=== PATIENT | female | born 1960 | race Caucasian/White ===

== ENCOUNTER 2020-03-13 07:58 | Day surgery (SDC) | payer BC ==
[~2020-03-13] VITALS: Ht 154.9 cm; Wt 72.7 kg
[~2020-03-13 07:58] MED LIST: ALL DAY ALLERGY10 M3 PO; EFFEXOR XR37.5 MG PO; FLONASE ALLERG9.9 ML NAS; NIACINAMIDE500 MG PO; RED YEAST RICE600 MG PO; SUPER OMEGA-31000 MG PO; VITAMIN D325 MC2 PO
[2020-03-13] MEDS ORDERED: ARMOUR THYROID90 MG PO (08:23)
[2020-03-13] MEDS ORDERED: THYROID COMPLEX PO (08:25)
--- NOTE | 2020-03-13 10:20 | NUR ---
03/13/20 1020 Daisy Rosario 1013- PT TO PACU IN LL POSITION. EYES CLOSED, SLEEPING WITH ORAL AIRWAY IN PLACE. DOES NOT RESPOND TO VERBAL OR TACTILE STIMULI. BREATHING EASY AND UNLABORED. SPO2 >95% ON 10 L O2 VIA SIMPLE MASK.
--- NOTE | 2020-03-13 13:14 | NUR ---
UNABLE TO VISIT WITH PT, CONNECTED WITH WAITING IN RM. CARMELITA SHARED HE HOPES TODAY IS PRODUCTIVE, PT HAS BEEN SUFFERING FOR ABOUT 1 YR AND TO THIS POINT NO REASON HAS BEEN LOCATED. GAVE ENCOURAGEMENT WILL FOLLOW NEEDED
--- NOTE | 2020-03-13 18:25 | OR ---
[facility] [address] [place], [place] [address] Signed DATE OF OPERATION: 03/13/2020 SURGEON: Mary Clark MD PREOPERATIVE DIAGNOSES: 1. Epigastric abdominal pain. 2. Diarrhea. 3. Vomiting. 4. Diverticulosis. POSTOPERATIVE DIAGNOSES: 1. Mild gastritis. 2. [id number] pandiverticulosis. 3. Minimal internal hemorrhoids. PROCEDURE: 1. EGD with CLOtest and biopsies of the duodenum and antrum. 2. Colonoscopy without biopsy. ESTIMATED BLOOD LOSS: None. INDICATIONS: Scarlett is a 59-year-old female, who asked to see me for both upper and lower endoscopy. For at least 2 years now, she has been having epigastric abdominal pain, but has been getting worse over the last two months. It is often associated with diarrhea. Once a while she vomits. It does not seem to be associated with eating. In addition, she had her screening colonoscopy back in 2010. She is known to have pandiverticulosis. However, it is quite minimal. In the meantime, she has also been working with her primary care provider with respect to her hypothyroidism. She is trying a new medication currently. In the office, I gave her pamphlets on both upper and lower endoscopy. She recalls those quite well. She understands this risk including, but not limited to gas bloating, crampy abdominal pain, bleeding, perforation requiring surgery, and missed diagnosis. She also understands the need for IV conscious sedation. She expressed her understanding and wished to proceed. PROCEDURE NOTE: Scarlett was taken into our endoscopy suite and placed in the supine semi-recumbent position. The posterior oropharynx was anesthetized with lidocaine spray. A bite block was utilized for the case. She was given a total of 12 mg of Versed and 250 mcg of Electronically Signed By: MARY CLARK MD 03/13/20 1825 PATIENT NAME: SCARLETT ANDRADE OPERATIVE REPORT DATE OF : 60 REPORT #: [id number] PHYSICIAN: MARY CLARK MD PCP: JALEEL MILLER PA-C REPORT IS CONFIDENTIAL AND NOT TO BE RELEASED WITHOUT AUTHORIZATION [facility] [address] [place], [place] [address] Signed fentanyl to help cover both upper and lower endoscopy. Most of that was given for the upper endoscopy. We were able to get the scope out into the third portion of the duodenum. We took a biopsy for the history of diarrhea. Otherwise, the duodenum and pyloric channel were unremarkable. The stomach showed very mild erythematous changes. We went and took a biopsy of the antrum for CLOtest as well as pathologic review. Upon retroflexion of scope, there was no additional pathology noted. No evidence of hiatal hernia. No ulcerations. The scope was withdrawn up through the area of the GE junction, which was compliant without stricture. There was no gastric or esophageal varices. A very minimal disruption to the Z-line. No Wolfe's mucosa. No distal esophagitis. The middle and upper esophagus were unremarkable. After this, the gas was suctioned out, and the gastroscope removed. Scarlett tolerated the upper endoscopy quite well. Scarlett was rotated into the left lateral decubitus position. We had continued with the Versed and fentanyl. A digital rectal exam was performed and this was unremarkable. The adult colonoscope was introduced and advanced under direct visualization of camera. She has a somewhat angulated rectosigmoid junction and then continued angulation in her sigmoid colon. The scope continued to drag in the sigmoid colon. It took quite a bit to get through that area and up into the mid transverse colon. Even with the additional medication, abdominal compression, and rotating Scarlett on the bed, the scope simply was not going to advance any further. She simply was too awake and pushing back to advance the scope. Consequently, we did have our anesthesia provider come and add propofol. She was able to relax at that point and the scope then traveled quite nicely right into the cecum itself. We could easily see the appendiceal orifice and the ileocecal valve. Her prep was quite good. The scope was slowly withdrawn. Again, she has diverticula throughout. They are moderate in size, but few in number and scattered on the right and left side. No other pathology noted. The rectum was unremarkable. Upon retroflexion of the scope, she had a very minimal internal hemorrhoid tissue. After this, the gas was suctioned out, and the colonoscope removed. Scarlett tolerated the procedure quite well. RECOMMENDATIONS: I will see Scarlett back in my office in 7 to 14 days to review her results. Mary Clark MD ALB/MODL /[id number] Electronically Signed By: MARY CLARK MD 03/13/20 1825 PATIENT NAME: SCARLETT ANDRADE OPERATIVE REPORT DATE OF : 60 REPORT #: [id number] PHYSICIAN: MARY CLARK MD PCP: JALEEL MILLER PA-C REPORT IS CONFIDENTIAL AND NOT TO BE RELEASED WITHOUT AUTHORIZATION [facility] [address] [place], [place] [address] Signed cc: ELIZABETH Aguliar DC Copies: TAN REED DC ~ Electronically Signed By: MARY CLARK MD 03/13/20 1825 PATIENT NAME: SCARLETT ANDRADE OPERATIVE REPORT DATE OF : 60 REPORT #: [id number] PHYSICIAN: MARY CLARK MD PCP: JALEEL MILLER PA-C REPORT IS CONFIDENTIAL AND NOT TO BE RELEASED WITHOUT AUTHORIZATION
--- NOTE | 2020-03-14 11:44 | PATH ---
[facility] [address] [place], [place] [address] Signed SPECIMEN(S): A DUODENUM SPECIMEN(S): B ANTRUM/PYLORUS SPECIMEN SOURCE: A. DUODENUM B. ANTRUM/PYLORUS CLINICAL HISTORY: Epigastric pain, diarrhea. Postop: Gastritis, diverticulosis, internal hemorrhoids. MICROSCOPIC DESCRIPTION: Histologic sections of all submitted blocks are examined by light microscopy. These findings, together with the gross examination, support the pathologic diagnosis. FINAL PATHOLOGIC DIAGNOSIS: A. Duodenum, biopsy: - Duodenal mucosa with no histopathologic abnormality. - Negative for increased intraepithelial lymphocytes. - Negative for dysplasia or malignancy. B. Stomach, antrum/pylorus, biopsy: - Antral mucosa with chronic, inactive gastritis. - Negative for Helicobacter organisms on HE stain. - Negative for dysplasia or malignancy. NAL:cml:C2NR GROSS DESCRIPTION: Two specimens are received in two containers, labeled "JS." A. The specimen, labeled "JS, #1," and designated on the requisition "duodenum," is received in formalin and consists of one uribe soft tissue fragment that measures 0.3 cm in greatest dimension. The specimen is entirely submitted in cassette (A1). B. The specimen, labeled "JS, #2," and designated on the requisition "antrum/pylorus," is received in formalin and consists of one uribe soft tissue fragment that measures 0.4 cm in greatest dimension. The specimen is entirely submitted in cassette (B1). AT (under the direct supervision of a pathologist) The Gross Description was prepared using a voice recognition system. The report was reviewed for accuracy; however, sound-alike word errors, addition and/or deletions may occur. If there is any question about this report, please contact Client Services. PATIENT NAME: DAMON ANDRADE PATHOLOGY DATE OF : 60 REPORT #: [id number] PHYSICIAN: CHAIM FERMIN PCP: JALEEL MILLER PA-C REPORT IS CONFIDENTIAL AND NOT TO BE RELEASED WITHOUT AUTHORIZATION [facility] [address] [place] [address] Signed PERFORMING LABORATORY: The technical component [place] [address] (Animal Nutritionist: Lynn Soliz MD; CLIA# [id number]). [facility], [address] [address] (CLIA# [id number]). Diagnostician: Sravani Leija MD Pathologist Electronically Signed 03/14/2020 Copies: ~ PATIENT NAME: DAMON ANDRADE PATHOLOGY DATE OF : 60 REPORT #: [id number] PHYSICIAN: [facility] PCP: JALEEL MILLER PA-C REPORT IS CONFIDENTIAL AND NOT TO BE RELEASED WITHOUT AUTHORIZATION
== END 2020-03-13 11:00 | disposition home or self-care (01) ==
LOC: OPS 07:58 → DS 08:03 → OPS 09:45 → DS 09:45 → OPS 11:00
PROVIDERS: ATTEND Colon & Rectal Surgery
PROC: 0DJD8ZZ Inspection of Lower Intestinal Tract, Via Natural or Artificial Opening Endoscopic (ICD-10-PCS; 2020-03-13)
PROC: 0DB98ZX Excision of Duodenum, Via Natural or Artificial Opening Endoscopic, Diagnostic (ICD-10-PCS; principal; 2020-03-13 09:45)
PROC: 0DB78ZX Excision of Stomach, Pylorus, Via Natural or Artificial Opening Endoscopic, Diagnostic (ICD-10-PCS; 2020-03-13 09:45)
DX: K64.8 Other hemorrhoids (principal); K57.30 Diverticulosis of large intestine without perforation or abscess without bleeding; K29.50 Unspecified chronic gastritis without bleeding
CPT/HCPCS: 86677; 99153; G0500; J2250; J2704; J3010; J7121